=== PATIENT | male | born 1965 | race Caucasian/White ===

== ENCOUNTER 2019-07-08 12:39 | Inpatient (IN) | payer OTHER ==
[2019-07-08 13:40] LABS: ADD MAN DIFF? NO
[2019-07-08 13:43] LABS: BASOPHILS % 0.5 % (0.0-2.0); EOSINOPHILS % 0.5 % (0.0-7.0); HEMATOCRIT 29.6 % (42.0-52.0); HEMOGLOBIN 9.4 g/dl (14.0-18.0); LYMPHOCYTES # 0.9 10^3/ul (0.8-2.9); MEAN CORPUSCULAR HEMOGLOBIN 30.4 pg (29.0-33.0); MEAN CORPUSCULAR HGB CONC 31.8 g/dl (32.0-37.0); MEAN CORPUSCULAR VOLUME 95.8 fl (82.0-101.0); MEAN PLATELET VOLUME 8.8 fl (7.4-10.4); MONOCYTE # 0.5 10^3/ul (0.3-0.9); MONOCYTES % 6.4 % (0.0-11.0); NEUTROPHIL # 6.6 10^3/ul (1.6-7.5); NEUTROPHILS % 81.4 % (39.0-77.0); PLATELET COUNT 324 10^3/UL (140-415); RED BLOOD COUNT 3.09 10^6/ul (4.70-6.10); RED CELL DISTRIBUTION WIDTH 15.9 % (11.5-14.5)
[2019-07-08 13:43] LABS: WHITE BLOOD COUNT 8.1 10^3/ul (4.8-10.8)
[2019-07-08] MEDS: FUROSEMIDE 40 MG INJ IV (13:50)
[2019-07-08 14:00] LABS: ALANINE AMINOTRANSFERASE 36 IU/L (13-69); ALBUMIN 3.3 g/dl (3.3-4.9); ALBUMIN/GLOBULIN RATIO 1.13; ALKALINE PHOSPHATASE 74 IU/L (42-121); ANION GAP 6 (5-13); ASPARTATE AMINO TRANSFERASE 24 IU/L (15-46); BLOOD UREA NITROGEN 15 mg/dl (7-20); CALCIUM 8.5 mg/dl (8.4-10.2); CARBON DIOXIDE 32 mmol/L (21-31); CHLORIDE 99 mmol/L (97-110); CREATININE 0.78 mg/dl (0.61-1.24); Estimated GFR > 60 mL/min (>60); GLUCOSE 127 mg/dl (70-220); TOTAL PROTEIN 6.2 g/dl (6.1-8.1)
[2019-07-08 14:02] LABS: INR 1.65; PROTIME 19.6 Sec (11.9-14.9); PT RATIO 1.5
[2019-07-08 14:03] LABS: SODIUM 137 mmol/L (135-144)
[2019-07-08 14:04] LABS: PARTIAL THROMBOPLASTIN TIME 43.9 Sec (23.0-35.0)
[2019-07-08 14:12] LABS: B-TYPE NATRIURETIC PEPTIDE 12400 PG/ML (0-125); TROPONIN-I 0.068 ng/ml (0.000-0.120)
[2019-07-08 14:24] LABS: AADO2 Arterial 517.7 mmHg (7.0-24.0); Arterial Base Excess 5.2 mmol/L (-3.0-3); Arterial Blood Gas Oxygen Sat 99.2 mmHG (95.0-98.0); Arterial COHb 0.6 % (0.0-3.0); Arterial Fraction of Oxyhgb 98.2 % (93.0-99.0); Arterial HCO3 28.7 mmol/L (22.0-26.0); Arterial MetHb 0.4 % (0.0-1.5); Arterial pCO2 38.2 mmhg (35-45); Blood Gas IEPAP 15/5; Blood Gas PS 10; MODE MASK - BIPAP; Site Right Brachial
[2019-07-08] MEDS: NORepinephrine 8MG/250 ML (PMX 250 ML IV (14:33)
[2019-07-08 14:35] LABS: MAGNESIUM 1.3 mg/dl (1.7-2.5)
[2019-07-08] MEDS: POTASSIUM CHLORIDE 100 ML IVPB ×3 (14:40→22:17)
[2019-07-08] MEDS ORDERED: MAGNESIUM SULFATE 4 GM/100 ML 100 ML IV (16:00)
[2019-07-08] MEDS ORDERED: ENOXAPARIN 40 MG/0.4 ML SYG SC (16:00)
[2019-07-08] MEDS ORDERED: DOCUSATE SODIUM 100 MG CAP PO (16:00)
[2019-07-08] MEDS ORDERED: BISACODYL 10 MG SUPP PR (16:00)
[2019-07-08] MEDS: MAGNESIUM SULFATE 4 GM/100 ML 100 ML IVPB (16:30)
[2019-07-08] MEDS: MAGNESIUM SULFATE 1 GM/D5W 100 ML IVPB (16:30)
[2019-07-08] MEDS: ALBUTEROL 0.083% (NEB) 2.5 MG/3 ML AMP NEB ×2 (17:00→20:09)
[2019-07-08] MEDS: IPRATROPIUM (NEB) 0.5 MG/2.5 ML AMP NEB ×2 (17:00→20:10)
[2019-07-08] MEDS: NITROGLYCERIN (SL) 0.4 MG TAB SL ×3 (17:08→21:26)
[2019-07-08] MEDS: MAGNESIUM SULFATE 2 GM/50 ML 50 ML IVPB (17:08)
[2019-07-08] MEDS: morphine 2 MG INJ IV ×3 (17:08→22:12)
[2019-07-08] MEDS: MAG SULFATE 2GM IN 50 ML IVPB ×3 (17:30→22:18)
[2019-07-08] MEDS ORDERED: CLOPIDOGREL 75 MG TAB PO (19:30)
[2019-07-08] MEDS: CLOPIDOGREL 75 MG TAB PO (19:50)
[2019-07-08] MEDS ORDERED: APIXABAN 5 MG TABLET PO (21:00)
[2019-07-08] MEDS ORDERED: ATORVASTATIN 80 MG TAB PO (21:00)
[2019-07-08] MEDS: ATORVASTATIN 80 MG TAB PO (21:08)
[2019-07-08] MEDS: APIXABAN 5 MG TABLET PO (21:08)
[2019-07-08] MEDS: FAMOTIDINE 20 MG INJ IV (21:08)
[2019-07-08] MEDS: BUMETANIDE 25 MG in DEXTROSE 5% 150 ML IV (21:17)
[2019-07-08 21:22] LABS: CREATINE KINASE 65 IU/L (23-200)
[2019-07-08 21:32] LABS: CK INDEX 3.3; CK-MB 2.16 ng/ml (0.0-2.4); TROPONIN-I 0.074 ng/ml (0.000-0.120)
[2019-07-09] MEDS: ONDANSETRON 4 MG INJ IV (00:10)
[2019-07-09] MEDS: morphine 2 MG INJ IV ×4 (00:14→09:24)
[2019-07-09] MEDS: GUAIFENESIN 20 MG/ML 5ML CUP PO ×2 (00:50→13:40)
[2019-07-09] MEDS: ALBUTEROL 0.083% (NEB) 2.5 MG/3 ML AMP NEB ×3 (01:03→10:16)
[2019-07-09] MEDS: IPRATROPIUM (NEB) 0.5 MG/2.5 ML AMP NEB ×3 (01:03→10:16)
[2019-07-09 04:40] LABS: ADD MAN DIFF? NO
[2019-07-09 04:48] LABS: WHITE BLOOD COUNT 11.8 10^3/ul (4.8-10.8)
[2019-07-09 04:48] LABS: BASOPHILS % 0.3 % (0.0-2.0); HEMATOCRIT 29.3 % (42.0-52.0); HEMOGLOBIN 9.1 g/dl (14.0-18.0); LYMPHOCYTES # 1.2 10^3/ul (0.8-2.9); LYMPHOCYTES % 9.7 % (15.0-51.0); MEAN CORPUSCULAR HGB CONC 31.1 g/dl (32.0-37.0); MEAN CORPUSCULAR VOLUME 96.7 fl (82.0-101.0); MEAN PLATELET VOLUME 9.5 fl (7.4-10.4); MONOCYTE # 0.9 10^3/ul (0.3-0.9); MONOCYTES % 7.7 % (0.0-11.0); NEUTROPHIL # 9.7 10^3/ul (1.6-7.5); NEUTROPHILS % 81.8 % (39.0-77.0); PLATELET COUNT 400 10^3/UL (140-415); RED BLOOD COUNT 3.03 10^6/ul (4.70-6.10)
[2019-07-09 05:01] LABS: ANION GAP 8 (5-13); BLOOD UREA NITROGEN 13 mg/dl (7-20); CALCIUM 8.4 mg/dl (8.4-10.2); CARBON DIOXIDE 34 mmol/L (21-31); CHLORIDE 94 mmol/L (97-110); CREATININE 0.84 mg/dl (0.61-1.24); Estimated GFR > 60 mL/min (>60); GLUCOSE 128 mg/dl (70-220); POTASSIUM 3.4 mmol/L (3.5-5.1); SODIUM 136 mmol/L (135-144)
[2019-07-09 05:09] LABS: MAGNESIUM 6.2 mg/dl (1.7-2.5)
[2019-07-09 05:13] LABS: TROPONIN-I 0.089 ng/ml (0.000-0.120)
[2019-07-09 05:13] LABS: B-TYPE NATRIURETIC PEPTIDE 16600 PG/ML (0-125)
[2019-07-09] MEDS: NORepinephrine 8MG/250 ML (PMX 250 ML IV ×2 (05:46→11:33)
[2019-07-09 06:55] LABS: ANION GAP 8 (5-13); BLOOD UREA NITROGEN 15 mg/dl (7-20); CALCIUM 8.8 mg/dl (8.4-10.2); CARBON DIOXIDE 37 mmol/L (21-31); CHLORIDE 92 mmol/L (97-110); CREATININE 0.94 mg/dl (0.61-1.24); Estimated GFR > 60 mL/min (>60); GLUCOSE 151 mg/dl (70-220); POTASSIUM 3.9 mmol/L (3.5-5.1); SODIUM 137 mmol/L (135-144)
[2019-07-09] MEDS: LIDOCAINE 1% (MPF) 5 ML VIAL SC (07:37)
[2019-07-09 07:43] LABS: POTASSIUM 2.7 mmol/L (3.5-5.1)
[2019-07-09] MEDS: APIXABAN 5 MG TABLET PO ×2 (09:18→20:01)
[2019-07-09] MEDS: POTASSIUM CHLORIDE 50 ML IVPB (09:18)
[2019-07-09] MEDS: FAMOTIDINE 20 MG INJ IV ×2 (09:18→20:04)
[2019-07-09] MEDS: CLOPIDOGREL 75 MG TAB PO (09:18)
[2019-07-09] MEDS ORDERED: IPRATROPIUM (NEB) 0.5 MG/2.5 ML AMP NEB (10:30)
[2019-07-09] MEDS ORDERED: LEVALBUTEROL (NEB) 0.31 MG/3 ML AMP HHN (10:30)
[2019-07-09] MEDS: DOPamine-D5W 1.6 MG/ML 250 ML IV ×2 (11:34→23:43)
[2019-07-09] MEDS: BUMETANIDE 25 MG in DEXTROSE 5% 150 ML IV (18:30)
[2019-07-09] MEDS: ATORVASTATIN 80 MG TAB PO (20:01)
[2019-07-09] MEDS: morphine 4 MG/ML VIAL IV ×2 (20:08→23:39)
[2019-07-09] MEDS: ACETAMINOPHEN 650MG/20.3ML CUP PO (20:16)
[2019-07-09] MEDS ORDERED: VANCOMYCIN IV PER PHARMACY XX (22:00)
[2019-07-09 23:12] LABS: LACTIC ACID 1.4 mmol/L (0.5-2.0)
[2019-07-09] MEDS: VANCOMYCIN HCL 1.75 GM in SOD CHLORIDE 0.9% 500 ML IVPB (23:30)
[2019-07-09] MEDS: PIPER-TAZO 3.375 GM IV (PMX) 100 ML IVPB (23:30)
[2019-07-10 02:11] LABS: ADD UMIC YES; UR ASCORBIC ACID NEGATIVE (NEGATIVE); UR BILIRUBIN (Dip) NEGATIVE (NEGATIVE); UR BLOOD (Dip) 2+ mg/dL (NEGATIVE); UR CLARITY CLEAR (CLEAR); UR COLOR YELLOW (YELLOW); UR GLUCOSE (Dip) NEGATIVE (NEGATIVE); UR KETONES (Dip) NEGATIVE (NEGATIVE); UR LEUKOCYTE ESTERASE (Dip) NEGATIVE Leu/ul (NEGATIVE); UR NITRITE (Dip) NEGATIVE (NEGATIVE); UR RBC 9 /HPF (0-5); UR SPECIFIC GRAVITY (Dip) 1.006 (1.003-1.030); UR TOTAL PROTEIN (Dip) NEGATIVE (NEGATIVE); UR UROBILINOGEN (Dip) NEGATIVE (NEGATIVE); UR WBC 1 /HPF (0-5)
[2019-07-10] MEDS: morphine 4 MG/ML VIAL IV ×6 (02:11→23:38)
[2019-07-10] MEDS: LIDOCAINE 4% CR TOP (04:20)
[2019-07-10] MEDS: ZOLPIDEM 5 MG TAB PO (04:20)
[2019-07-10] MEDS: ACETAMINOPHEN 650MG/20.3ML CUP PO (04:35)
[2019-07-10 04:38] LABS: ADD MAN DIFF? NO
[2019-07-10 04:40] LABS: BASOPHILS % 0.3 % (0.0-2.0); EOSINOPHILS # 0.1 10^3/ul (0.0-0.5); EOSINOPHILS % 0.6 % (0.0-7.0); HEMATOCRIT 31.3 % (42.0-52.0); HEMOGLOBIN 9.7 g/dl (14.0-18.0); LYMPHOCYTES # 1.2 10^3/ul (0.8-2.9); LYMPHOCYTES % 10.3 % (15.0-51.0); MEAN CORPUSCULAR HEMOGLOBIN 29.8 pg (29.0-33.0); MEAN CORPUSCULAR VOLUME 96.3 fl (82.0-101.0); MEAN PLATELET VOLUME 8.8 fl (7.4-10.4); MONOCYTE # 0.9 10^3/ul (0.3-0.9); MONOCYTES % 7.5 % (0.0-11.0); NEUTROPHIL # 9.7 10^3/ul (1.6-7.5); NEUTROPHILS % 80.8 % (39.0-77.0); PLATELET COUNT 268 10^3/UL (140-415); RED BLOOD COUNT 3.25 10^6/ul (4.70-6.10); RED CELL DISTRIBUTION WIDTH 15.6 % (11.5-14.5)
[2019-07-10 05:04] LABS: MAGNESIUM 1.3 mg/dl (1.7-2.5)
[2019-07-10 05:05] LABS: ALANINE AMINOTRANSFERASE 28 IU/L (13-69); ALBUMIN 3.4 g/dl (3.3-4.9); ALKALINE PHOSPHATASE 60 IU/L (42-121); ASPARTATE AMINO TRANSFERASE 27 IU/L (15-46); BILIRUBIN,INDIRECT 1.8 mg/dl (0-1.1); BILIRUBIN,TOTAL 1.8 mg/dl (0.2-1.3); BLOOD UREA NITROGEN 15 mg/dl (7-20); CALCIUM 7.9 mg/dl (8.4-10.2); CHLORIDE 85 mmol/L (97-110); CREATININE 0.82 mg/dl (0.61-1.24); Estimated GFR > 60 mL/min (>60); GLUCOSE 140 mg/dl (70-220); SODIUM 135 mmol/L (135-144)
[2019-07-10 05:06] LABS: ANION GAP 10 (5-13)
[2019-07-10 05:07] LABS: POTASSIUM 2.4 mmol/L (3.5-5.1)
[2019-07-10] MEDS: POTASSIUM CHLORIDE 50 ML IVPB ×3 (05:11→11:05)
[2019-07-10 05:16] LABS: CARBON DIOXIDE 40 mmol/L (21-31)
[2019-07-10] MEDS: PIPER-TAZO 3.375 GM IV (PMX) 100 ML IVPB ×3 (05:26→20:43)
[2019-07-10] MEDS: MAGNESIUM SULFATE 2 GM/50 ML 50 ML IVPB (06:16)
[2019-07-10] MEDS: DOPamine-D5W 1.6 MG/ML 250 ML IV ×4 (06:28→23:19)
[2019-07-10] MEDS: CLOPIDOGREL 75 MG TAB PO (08:49)
[2019-07-10] MEDS: APIXABAN 5 MG TABLET PO ×2 (08:49→20:42)
[2019-07-10] MEDS: FAMOTIDINE 20 MG INJ IV (08:50)
[2019-07-10] MEDS: ALBUMIN HUMAN 25% 100 ML IV ×2 (11:06→17:20)
[2019-07-10 11:29] LABS: AADO2 Arterial 607.8 mmHg (7.0-24.0); Allen Test ACCEPTAB; Arterial Base Excess 10.8 mmol/L (-3.0-3); Arterial Blood Gas Oxygen Sat 87.5 mmHG (95.0-98.0); Arterial COHb 0.7 % (0.0-3.0); Arterial Fraction of Oxyhgb 86.5 % (93.0-99.0); Arterial HCO3 36.1 mmol/L (22.0-26.0); Arterial MetHb 0.4 % (0.0-1.5); Arterial pCO2 51.4 mmhg (35-45); Blood Gas IEPAP 15/5; Blood Gas PS 10; MODE MASK - BIPAP; Site Left Radial
[2019-07-10] MEDS: VANCOMYCIN 1 GM 250 ML IVPB (13:49)
[2019-07-10] MEDS: BUMETANIDE 25 MG in DEXTROSE 5% 150 ML IV (17:19)
[2019-07-10] MEDS: ATORVASTATIN 80 MG TAB PO (20:42)
[2019-07-10] MEDS: FAMOTIDINE 20 MG TAB PO (20:42)
[2019-07-11] MEDS: VANCOMYCIN 1 GM 250 ML IVPB ×2 (01:15→14:12)
[2019-07-11] MEDS: ALBUMIN HUMAN 25% 100 ML IV (01:16)
[2019-07-11 05:06] LABS: ADD MAN DIFF? NO
[2019-07-11] MEDS: PIPER-TAZO 3.375 GM IV (PMX) 100 ML IVPB ×3 (05:12→20:23)
[2019-07-11 05:13] LABS: BASOPHILS % 0.2 % (0.0-2.0); EOSINOPHILS # 0.1 10^3/ul (0.0-0.5); HEMATOCRIT 27.8 % (42.0-52.0); HEMOGLOBIN 8.7 g/dl (14.0-18.0); LYMPHOCYTES # 1.2 10^3/ul (0.8-2.9); LYMPHOCYTES % 10.4 % (15.0-51.0); MEAN CORPUSCULAR HGB CONC 31.3 g/dl (32.0-37.0); MEAN CORPUSCULAR VOLUME 95.9 fl (82.0-101.0); MEAN PLATELET VOLUME 9.8 fl (7.4-10.4); MONOCYTE # 0.6 10^3/ul (0.3-0.9); MONOCYTES % 5.6 % (0.0-11.0); NEUTROPHIL # 9.4 10^3/ul (1.6-7.5); NEUTROPHILS % 82.4 % (39.0-77.0); PLATELET COUNT 236 10^3/UL (140-415); RED CELL DISTRIBUTION WIDTH 15.4 % (11.5-14.5)
[2019-07-11 05:13] LABS: WHITE BLOOD COUNT 11.4 10^3/ul (4.8-10.8)
[2019-07-11] MEDS: DOPamine-D5W 1.6 MG/ML 250 ML IV ×4 (05:20→23:23)
[2019-07-11 05:42] LABS: ALANINE AMINOTRANSFERASE 24 IU/L (13-69); ALBUMIN 3.8 g/dl (3.3-4.9); ALBUMIN/GLOBULIN RATIO 1.35; ALKALINE PHOSPHATASE 56 IU/L (42-121); ANION GAP 10 (5-13); ASPARTATE AMINO TRANSFERASE 26 IU/L (15-46); BILIRUBIN,INDIRECT 1.4 mg/dl (0-1.1); BILIRUBIN,TOTAL 1.4 mg/dl (0.2-1.3); BLOOD UREA NITROGEN 19 mg/dl (7-20); CALCIUM 8.1 mg/dl (8.4-10.2); CARBON DIOXIDE 39 mmol/L (21-31); CHLORIDE 84 mmol/L (97-110); CREATININE 0.91 mg/dl (0.61-1.24); Estimated GFR > 60 mL/min (>60); GLUCOSE 116 mg/dl (70-220); SODIUM 133 mmol/L (135-144); TOTAL PROTEIN 6.6 g/dl (6.1-8.1)
[2019-07-11 05:44] LABS: MAGNESIUM 1.5 mg/dl (1.7-2.5); POTASSIUM 2.4 mmol/L (3.5-5.1)
[2019-07-11 05:44] LABS: PHOSPHORUS 3.2 mg/dl (2.5-4.9)
[2019-07-11] MEDS: POTASSIUM CHLORIDE 50 ML IVPB ×5 (05:49→22:07)
[2019-07-11] MEDS: morphine 4 MG/ML VIAL IV (06:54)
[2019-07-11] MEDS: APIXABAN 5 MG TABLET PO ×2 (08:06→20:23)
[2019-07-11] MEDS: FAMOTIDINE 20 MG TAB PO ×2 (08:06→20:23)
[2019-07-11] MEDS: CLOPIDOGREL 75 MG TAB PO (08:06)
[2019-07-11] MEDS: MAGNESIUM SULFATE 2 GM/50 ML 50 ML IVPB (08:06)
[2019-07-11 09:58] LABS: AADO2 Arterial 615.7 mmHg (7.0-24.0); Allen Test ACCEPTAB; Arterial Base Excess 7.7 mmol/L (-3.0-3); Arterial Blood Gas Oxygen Sat 87.6 mmHG (95.0-98.0); Arterial COHb 0.3 % (0.0-3.0); Arterial HCO3 32.1 mmol/L (22.0-26.0); Arterial MetHb 0.4 % (0.0-1.5); Arterial pCO2 44.3 mmhg (35-45); Blood Gas IEPAP 15/8; Blood Gas PS 7; MODE MASK - BIPAP; Site Left Radial
[2019-07-11] MEDS: METHYLPREDNISOLONE 40 MG INJ IV ×3 (10:27→20:23)
[2019-07-11] MEDS: ALBUMIN HUMAN 25% 50 ML IV ×2 (10:28→17:00)
[2019-07-11] MEDS: NORepinephrine 8MG/250 ML (PMX 250 ML IV (10:55)
[2019-07-11] MEDS: LIDOCAINE 5% PATCH TD (11:00)
[2019-07-11] MEDS: ALPRAZOLAM 0.5 MG TAB PO ×2 (12:21→20:23)
[2019-07-11 12:58] LABS: ANION GAP 14 (5-13); BLOOD UREA NITROGEN 23 mg/dl (7-20); CALCIUM 8.2 mg/dl (8.4-10.2); CARBON DIOXIDE 33 mmol/L (21-31); CHLORIDE 83 mmol/L (97-110); CREATININE 1.08 mg/dl (0.61-1.24); Estimated GFR > 60 mL/min (>60); GLUCOSE 176 mg/dl (70-220); POTASSIUM 3.1 mmol/L (3.5-5.1); SODIUM 130 mmol/L (135-144)
[2019-07-11 13:05] LABS: B-TYPE NATRIURETIC PEPTIDE 28900 PG/ML (0-125)
[2019-07-11 13:40] LABS: VANCOMYCIN,TROUGH 14.1 ug/ml (10.0-20.0)
[2019-07-11] MEDS: BUMETANIDE 25 MG in DEXTROSE 5% 150 ML IV (16:59)
[2019-07-11] MEDS: ATORVASTATIN 80 MG TAB PO (20:23)
[2019-07-11] MEDS: ZOLPIDEM 5 MG TAB PO (23:07)
[2019-07-11 23:24] LABS: AADO2 Arterial 462.7 mmHg (7.0-24.0); Arterial Base Excess -5.9 mmol/L (-3.0-3); Arterial Blood Gas Oxygen Sat 92.4 mmHG (95.0-98.0); Arterial COHb 0.3 % (0.0-3.0); Arterial Fraction of Oxyhgb 91.8 % (93.0-99.0); Arterial HCO3 18.8 mmol/L (22.0-26.0); Arterial MetHb 0.4 % (0.0-1.5); Blood Gas IEPAP 15/8; Blood Gas PS 7; MODE MASK - BIPAP; Site LB
[2019-07-12] MEDS: METOLAZONE 10 MG TAB PO (00:53)
[2019-07-12] MEDS: METAXALONE 800 MG TAB PO (00:53)
[2019-07-12] MEDS: ALBUMIN HUMAN 25% 50 ML IV ×2 (00:59→12:23)
[2019-07-12] MEDS: VANCOMYCIN 1 GM 250 ML IVPB (00:59)
[2019-07-12] MEDS: POTASSIUM CHLORIDE 50 ML IVPB (01:05)
[2019-07-12 01:58] LABS: AADO2 Arterial 637.7 mmHg (7.0-24.0); Allen Test ACCEPTAB; Arterial Base Excess -5.7 mmol/L (-3.0-3); Arterial COHb 0.3 % (0.0-3.0); Arterial Fraction of Oxyhgb 20.6 % (93.0-99.0); Arterial MetHb 1.8 % (0.0-1.5); Arterial pCO2 54.2 mmhg (35-45); Blood Gas IEPAP 15/8; MODE MASK - BIPAP; Site Right Radial
[2019-07-12] MEDS: MIDAZOLAM (DRIP) 50 mg/50 mL 50 ML IV ×2 (02:59→12:20)
[2019-07-12] MEDS: VASOPRESSIN 60 UNIT in DEXTROSE 5% 57 ML IV ×3 (03:00→18:00)
[2019-07-12 03:36] LABS: AADO2 Arterial 530.5 mmHg (7.0-24.0); Arterial Base Excess -10.4 mmol/L (-3.0-3); Arterial Blood Gas Oxygen Sat 97.4 mmHG (95.0-98.0); Arterial COHb 0.1 % (0.0-3.0); Arterial Fraction of Oxyhgb 96.8 % (93.0-99.0); Arterial HCO3 17.9 mmol/L (22.0-26.0); Arterial MetHb 0.5 % (0.0-1.5); Arterial pCO2 51.1 mmhg (35-45); MODE VENT - AC; Site LB
[2019-07-12] MEDS: FENTAnyl (DRIP) 1000 mcg/100mL 100 ML IV ×2 (04:19→14:47)
[2019-07-12] MEDS: DOPamine-D5W 1.6 MG/ML 250 ML IV ×3 (04:33→12:33)
[2019-07-12] MEDS: METHYLPREDNISOLONE 40 MG INJ IV ×3 (04:34→22:36)
[2019-07-12] MEDS: PIPER-TAZO 3.375 GM IV (PMX) 100 ML IVPB ×3 (04:34→22:37)
[2019-07-12 05:28] LABS: ADD MAN DIFF? NO
[2019-07-12 05:34] LABS: ABNORMAL IP MESSAGE 1; BASOPHILS % 0.1 % (0.0-2.0); HEMATOCRIT 29.8 % (42.0-52.0); HEMOGLOBIN 8.9 g/dl (14.0-18.0); LYMPHOCYTES # 0.3 10^3/ul (0.8-2.9); LYMPHOCYTES % 1.9 % (15.0-51.0); MEAN CORPUSCULAR HEMOGLOBIN 30.1 pg (29.0-33.0); MEAN CORPUSCULAR HGB CONC 29.9 g/dl (32.0-37.0); MEAN CORPUSCULAR VOLUME 100.7 fl (82.0-101.0); MEAN PLATELET VOLUME 10.9 fl (7.4-10.4); MONOCYTE # 0.9 10^3/ul (0.3-0.9); MONOCYTES % 5.9 % (0.0-11.0); NEUTROPHIL # 13.3 10^3/ul (1.6-7.5); NEUTROPHILS % 91.3 % (39.0-77.0); PLATELET COUNT 253 10^3/UL (140-415); POSITIVE DIFF @See below; RED BLOOD COUNT 2.96 10^6/ul (4.70-6.10); RED CELL DISTRIBUTION WIDTH 15.6 % (11.5-14.5)
[2019-07-12 05:34] LABS: WHITE BLOOD COUNT 14.6 10^3/ul (4.8-10.8)
[2019-07-12 05:57] LABS: ANION GAP 27 (5-13); BLOOD UREA NITROGEN 33 mg/dl (7-20); CARBON DIOXIDE 21 mmol/L (21-31); CHLORIDE 85 mmol/L (97-110); CREATININE 1.38 mg/dl (0.61-1.24); Estimated GFR 53 mL/min (>60); GLUCOSE 130 mg/dl (70-220); MAGNESIUM 2.3 mg/dl (1.7-2.5); PHOSPHORUS 8.2 mg/dl (2.5-4.9); POTASSIUM 4.4 mmol/L (3.5-5.1); SODIUM 133 mmol/L (135-144)
[2019-07-12 07:11] LABS: ALBUMIN 4.2 g/dl (3.3-4.9); ALKALINE PHOSPHATASE 89 IU/L (42-121); BILIRUBIN,TOTAL 3.2 mg/dl (0.2-1.3); TOTAL PROTEIN 6.9 g/dl (6.1-8.1)
[2019-07-12 07:20] LABS: AADO2 Arterial 525.8 mmHg (7.0-24.0); Allen Test ACCEPTAB; Arterial Base Excess -6.4 mmol/L (-3.0-3); Arterial Blood Gas Oxygen Sat 90.6 mmHG (95.0-98.0); Arterial COHb 0.3 % (0.0-3.0); Arterial MetHb 0.4 % (0.0-1.5); Arterial pCO2 43.3 mmhg (35-45); MODE VENT - AC; Site Left Radial
[2019-07-12 07:22] LABS: ALANINE AMINOTRANSFERASE 2375 IU/L (13-69)
[2019-07-12] MEDS ORDERED: AMIODARONE 200 MG TAB GTB (09:00)
[2019-07-12] MEDS: CLOPIDOGREL 75 MG TAB PO (10:26)
[2019-07-12] MEDS: APIXABAN 5 MG TABLET PO ×2 (10:26→21:00)
[2019-07-12] MEDS: LIDOCAINE 5% PATCH TD (10:26)
[2019-07-12] MEDS: FAMOTIDINE 20 MG TAB PO ×2 (10:26→21:00)
[2019-07-12] MEDS: NA BICARBONATE 8.4% 50 ML SYG IV (10:27)
[2019-07-12 10:56] LABS: LACTIC ACID 8.8 mmol/L (0.5-2.0)
[2019-07-12] MEDS: NORepinephrine 8MG/250 ML (PMX 250 ML IV (12:32)
[2019-07-12 14:01] LABS: ADD UMIC YES; UR AMORPHOUS CRYSTAL MODERATE /HPF (NONE SEEN); UR ASCORBIC ACID NEGATIVE (NEGATIVE); UR BACTERIA FEW /HPF (NONE SEEN); UR BILIRUBIN (Dip) NEGATIVE (NEGATIVE); UR BLOOD (Dip) 3+ mg/dL (NEGATIVE); UR BUDDING YEAST FEW /HPF (NONE SEEN); UR CLARITY CLOUDY (CLEAR); UR COLOR AMBER (YELLOW); UR GLUCOSE (Dip) NEGATIVE (NEGATIVE); UR HYALINE CAST FEW /HPF (NONE SEEN); UR KETONES (Dip) NEGATIVE (NEGATIVE); UR LEUKOCYTE ESTERASE (Dip) NEGATIVE Leu/ul (NEGATIVE); UR MUCUS MANY /HPF (NONE SEEN); UR NITRITE (Dip) NEGATIVE (NEGATIVE); UR RBC 74 /HPF (0-5); UR SPECIFIC GRAVITY (Dip) 1.017 (1.003-1.030); UR SQUAMOUS EPITHELIAL CELL FEW /HPF (FEW); UR TOTAL PROTEIN (Dip) 2+ mg/dl (NEGATIVE); UR UROBILINOGEN (Dip) NEGATIVE (NEGATIVE); UR WBC 4 /HPF (0-5)
[2019-07-12 14:04] LABS: AADO2 Arterial 612.7 mmHg (7.0-24.0); Allen Test ACCEPTAB; Arterial Base Excess 0.4 mmol/L (-3.0-3); Arterial Blood Gas Oxygen Sat 79.1 mmHG (95.0-98.0); Arterial COHb 0.2 % (0.0-3.0); Arterial Fraction of Oxyhgb 78.6 % (93.0-99.0); Arterial HCO3 26.4 mmol/L (22.0-26.0); Arterial MetHb 0.4 % (0.0-1.5); Arterial pCO2 49.5 mmhg (35-45); MODE VENT - AC; Site Left Radial
[2019-07-12] MEDS: FUROSEMIDE 40 MG INJ IV (14:30)
[2019-07-12] MEDS ORDERED: SODIUM CHLORIDE 0.9% 1L BAG IV (15:00)
[2019-07-12] MEDS ORDERED: ALBUMIN HUMAN 25% 100 ML IV (15:00)
[2019-07-12] MEDS ORDERED: ALBUMIN HUMAN 25% 50 ML IV (17:30)
[2019-07-12] MEDS: HEPARIN 1000 UNITS/ML 10 ML INJ CATHETER (18:27)
[2019-07-12 18:53] LABS: HEPATITIS B SURFACE ANTIGEN NEGATIVE (NEGATIVE)
[2019-07-12 18:56] LABS: HEPATITIS B SURFACE ANTIBODY POSITIVE (NEGATIVE)
[2019-07-12] MEDS: NORepinephrine 32 MG in DEXTROSE 5% 218 ML IV (19:00)
[2019-07-12] MEDS: ALBUMIN HUMAN 25% 100 ML IV (20:42)
[2019-07-12] MEDS: ATORVASTATIN 80 MG TAB PO (21:00)
[2019-07-13 01:17] LABS: AADO2 Arterial 609.6 mmHg (7.0-24.0); Allen Test ACCEPTAB; Arterial Base Excess -0.5 mmol/L (-3.0-3); Arterial Blood Gas Oxygen Sat 86.1 mmHG (95.0-98.0); Arterial COHb 0.2 % (0.0-3.0); Arterial Fraction of Oxyhgb 85.3 % (93.0-99.0); Arterial HCO3 24.8 mmol/L (22.0-26.0); Arterial MetHb 0.7 % (0.0-1.5); Arterial pCO2 43.7 mmhg (35-45); MODE VENT - AC; Site Left Radial
[2019-07-13 01:32] LABS: ADD MAN DIFF? NO
[2019-07-13 01:37] LABS: WHITE BLOOD COUNT 20.5 10^3/ul (4.8-10.8)
[2019-07-13 01:37] LABS: ABNORMAL IP MESSAGE 1; BASOPHILS % 0.1 % (0.0-2.0); HEMATOCRIT 22.5 % (42.0-52.0); LYMPHOCYTES # 0.3 10^3/ul (0.8-2.9); LYMPHOCYTES % 1.5 % (15.0-51.0); MEAN CORPUSCULAR HEMOGLOBIN 30.2 pg (29.0-33.0); MEAN CORPUSCULAR HGB CONC 31.1 g/dl (32.0-37.0); MEAN PLATELET VOLUME 10.7 fl (7.4-10.4); MONOCYTE # 0.7 10^3/ul (0.3-0.9); MONOCYTES % 3.6 % (0.0-11.0); NEUTROPHIL # 19.2 10^3/ul (1.6-7.5); NEUTROPHILS % 93.4 % (39.0-77.0); NUCLEATED RED BLOOD CELLS% 0.1 /100WBC (0.0-0.0); PLATELET COUNT 187 10^3/UL (140-415); POSITIVE DIFF @See below; RED BLOOD COUNT 2.32 10^6/ul (4.70-6.10); RED CELL DISTRIBUTION WIDTH 15.4 % (11.5-14.5)
[2019-07-13 01:55] LABS: ANION GAP 17 (5-13); BLOOD UREA NITROGEN 38 mg/dl (7-20); CALCIUM 7.4 mg/dl (8.4-10.2); CARBON DIOXIDE 29 mmol/L (21-31); CHLORIDE 91 mmol/L (97-110); CREATININE 2.09 mg/dl (0.61-1.24); Estimated GFR 33 mL/min (>60); GLUCOSE 181 mg/dl (70-220); MAGNESIUM 2.2 mg/dl (1.7-2.5); PHOSPHORUS 5.8 mg/dl (2.5-4.9); POTASSIUM 4.2 mmol/L (3.5-5.1); SODIUM 137 mmol/L (135-144)
[2019-07-13] MEDS: CALCIUM GLUCONATE 10% 1 GM in DEXTROSE 5% 100 ML IVPB (03:21)
[2019-07-13] MEDS: ALBUMIN HUMAN 25% 100 ML IV ×5 (03:30→21:07)
[2019-07-13 04:30] LABS: PARTIAL THROMBOPLASTIN TIME 41.2 Sec (23.0-35.0)
[2019-07-13] MEDS: PIPER-TAZO 3.375 GM IV (PMX) 100 ML IVPB (05:35)
[2019-07-13] MEDS: METHYLPREDNISOLONE 40 MG INJ IV (05:35)
[2019-07-13] MEDS: SOD CHLORIDE 0.9% 250 ML IV* ×2 (05:38→21:02)
[2019-07-13 05:52] LABS: PROTIME > 100.0 Sec (11.9-14.9); PT RATIO 7.8
[2019-07-13 05:55] LABS: INR > 10.00
[2019-07-13] MEDS: MIDAZOLAM (DRIP) 50 mg/50 mL 50 ML IV ×3 (06:13→22:05)
[2019-07-13] MEDS: LIDOCAINE 5% PATCH TD (08:21)
[2019-07-13] MEDS: CLOPIDOGREL 75 MG TAB PO (08:21)
[2019-07-13] MEDS: FAMOTIDINE 20 MG TAB PO (08:21)
[2019-07-13 08:55] LABS: AADO2 Arterial 598.9 mmHg (7.0-24.0); Allen Test ACCEPTAB; Arterial Base Excess -1.3 mmol/L (-3.0-3); Arterial Blood Gas Oxygen Sat 87.6 mmHG (95.0-98.0); Arterial COHb 0 % (0.0-3.0); Arterial Fraction of Oxyhgb 87.1 % (93.0-99.0); Arterial HCO3 25.2 mmol/L (22.0-26.0); Arterial MetHb 0.6 % (0.0-1.5); Arterial pCO2 51.1 mmhg (35-45); MODE VENT - AC; Site Right Radial
[2019-07-13] MEDS: VASOPRESSIN 60 UNIT in DEXTROSE 5% 57 ML IV (08:56)
[2019-07-13] MEDS: NORepinephrine 32 MG in DEXTROSE 5% 218 ML IV (08:57)
[2019-07-13] MEDS: PHYTONADIONE 10 MG in DEXTROSE 5% 50 ML IVPB (08:58)
[2019-07-13 09:31] LABS: PLATELET COUNT 135 10^3/UL (140-415)
[2019-07-13 09:53] LABS: THROMBIN TIME 15.4 SEC (13.8-19.1)
[2019-07-13] MEDS ORDERED: FUROSEMIDE 40 MG INJ (09:54)
[2019-07-13] MEDS: FUROSEMIDE 40 MG INJ IV (10:04)
[2019-07-13] MEDS: PANTOPRAZOLE 40 MG INJ IV ×2 (10:04→18:33)
[2019-07-13 10:11] LABS: VANCOMYCIN,RANDOM 18.7 ug/ml
[2019-07-13 10:45] LABS: PROTIME > 100.0 Sec (11.9-14.9); PT RATIO 7.8
[2019-07-13 10:49] LABS: INR > 10.00
[2019-07-13 10:52] LABS: D-DIMER > 10000.00 ng/ml (<460)
[2019-07-13] MEDS: MEROPENEM 1 GM/50ML(PMX) 50 ML IVPB (12:57)
[2019-07-13] MEDS ORDERED: EPINEPHrine 4 MG in DEXTROSE 5% 246 ML IV (13:00)
[2019-07-13 13:09] LABS: IMMEDIATE SPIN CROSSMATCH 1
[2019-07-13 13:45] LABS: AADO2 Venous 633.1 mmHg; MODE VENT - AC; MetHgb Venous 0.9 %; Sample Type Blood venous; Site OTHER; Venous COHb 0.3 %; Venous Fraction OxyHgb 47.6 %; Venous Oxygen Sat 48.2 mmHG (55.0-75.0)
[2019-07-13] MEDS: EPINEPHrine 4 MG in DEXTROSE 5% 246 ML IV ×2 (14:11→20:14)
[2019-07-13] MEDS: HYDROCORTISONE 100 MG INJ IV ×2 (14:12→18:34)
[2019-07-13] MEDS: DOBUTamine/D5W 1 MG/ML DRIP 250 ML IV ×3 (15:46→22:59)
[2019-07-13 20:35] LABS: WHITE BLOOD COUNT 7.3 10^3/ul (4.8-10.8)
[2019-07-13 20:35] LABS: ABNORMAL IP MESSAGE 1; HEMATOCRIT 19.2 % (42.0-52.0); MEAN CORPUSCULAR HEMOGLOBIN 30.3 pg (29.0-33.0); MEAN CORPUSCULAR HGB CONC 30.7 g/dl (32.0-37.0); MEAN CORPUSCULAR VOLUME 98.5 fl (82.0-101.0); MEAN PLATELET VOLUME 11.5 fl (7.4-10.4); NUCLEATED RED BLOOD CELLS% 0.5 /100WBC (0.0-0.0); PLATELET COUNT 83 10^3/UL (140-415); POSITIVE DIFF @See below; RED BLOOD COUNT 1.95 10^6/ul (4.70-6.10); RED CELL DISTRIBUTION WIDTH 15.6 % (11.5-14.5)
[2019-07-13 20:54] LABS: ADD MAN DIFF? YES; HEMOGLOBIN 5.9 g/dl (14.0-18.0)
[2019-07-13 20:55] LABS: PATH REVIEW? YES
[2019-07-13 20:56] LABS: ALBUMIN 3.7 g/dl (3.3-4.9); ALBUMIN/GLOBULIN RATIO 1.85; ALKALINE PHOSPHATASE 129 IU/L (42-121); ANION GAP 17 (5-13); BILIRUBIN,INDIRECT 1.7 mg/dl (0-1.1); BILIRUBIN,TOTAL 4.7 mg/dl (0.2-1.3); BLOOD UREA NITROGEN 59 mg/dl (7-20); CALCIUM 6.2 mg/dl (8.4-10.2); CARBON DIOXIDE 27 mmol/L (21-31); CHLORIDE 88 mmol/L (97-110); CREATININE 3.38 mg/dl (0.61-1.24); Estimated GFR 19 mL/min (>60); GLUCOSE 370 mg/dl (70-220); MAGNESIUM 2.4 mg/dl (1.7-2.5); POTASSIUM 3.8 mmol/L (3.5-5.1); SODIUM 132 mmol/L (135-144); TOTAL PROTEIN 5.7 g/dl (6.1-8.1)
[2019-07-13 21:10] LABS: ALANINE AMINOTRANSFERASE 2957 IU/L (13-69)
[2019-07-13] MEDS: CALCIUM GLUCONATE 10% 2 GM in DEXTROSE 5% 100 ML IVPB (21:46)
[2019-07-13 21:49] LABS: ANISOCYTOSIS 1+ (0-0); BURR CELLS 1+ (0-0); ERYTHROBLAST% (NRBC) (M) 4 % (0-0); GIANT THROMBO% (M) 1 % (0-0); LYMPHOCYTES #M 0.2 10^3/ul (0.8-2.9); LYMPHOCYTES % (M) 3 % (15-51); MONOCYTE #M 0.2 10^3/ul (0.3-0.9); MONOCYTES % (M) 3 % (0-11); POIKILOCYTOSIS 1+ (0-0); POLYCHROMASIA 1+ (0-0); SEGMENTED NEUTROPHILS (M) % 94 % (39-77); SMUDGE%M 98 % (0-0)
[2019-07-13] MEDS: DOPamine-D5W 1.6 MG/ML 250 ML IV (21:55)
[2019-07-13] MEDS ORDERED: GLUCOSE GEL 15 GRAM TUBE PO ×2 (22:30)
[2019-07-13] MEDS ORDERED: INSULIN HUMAN REGULAR 100 UNIT in SOD CHLORIDE 0.9% 99 ML IV (22:30)
[2019-07-13] MEDS ORDERED: GLUCAGON 1 MG INJ IM (22:30)
[2019-07-13] MEDS ORDERED: GLUCOSE GEL 15 GRAM TUBE BUCCAL (22:30)
[2019-07-13] MEDS ORDERED: DEXTROSE 50% 50 ML SYRINGE IV ×6 (22:30)
[2019-07-13] MEDS: INSULIN HUMAN REGULAR 100 UNIT in SOD CHLORIDE 0.9% 99 ML IV (23:49)
[2019-07-13] MEDS: ACCU-CHEK XX (23:49)
[2019-07-14] MEDS: HYDROCORTISONE 100 MG INJ IV ×5 (00:15→23:33)
[2019-07-14] MEDS: ACCU-CHEK XX ×12 (01:00→23:00)
[2019-07-14] MEDS: DOBUTamine/D5W 1 MG/ML DRIP 250 ML IV ×2 (02:00→04:38)
[2019-07-14] MEDS: EPINEPHrine 4 MG in DEXTROSE 5% 246 ML IV ×4 (02:28→22:13)
[2019-07-14] MEDS: INSULIN HUMAN REGULAR 100 UNIT in SOD CHLORIDE 0.9% 99 ML IV ×2 (04:12→11:13)
[2019-07-14] MEDS: VASOPRESSIN 60 UNIT in DEXTROSE 5% 57 ML IV ×2 (04:41→15:00)
[2019-07-14] MEDS: NORepinephrine 32 MG in DEXTROSE 5% 218 ML IV ×2 (04:45→21:44)
[2019-07-14 05:06] LABS: ADD MAN DIFF? NO
[2019-07-14] MEDS: ALBUMIN HUMAN 25% 100 ML IV ×2 (05:09→11:14)
[2019-07-14] MEDS: PANTOPRAZOLE 40 MG INJ IV ×2 (05:09→17:47)
[2019-07-14 05:29] LABS: AADO2 Arterial 468.9 mmHg (7.0-24.0); ABNORMAL IP MESSAGE 1; Arterial Base Excess -4.5 mmol/L (-3.0-3); Arterial Blood Gas Oxygen Sat 97.4 mmHG (95.0-98.0); Arterial COHb 0.3 % (0.0-3.0); Arterial Fraction of Oxyhgb 96.6 % (93.0-99.0); Arterial HCO3 22.8 mmol/L (22.0-26.0); Arterial MetHb 0.5 % (0.0-1.5); Arterial pCO2 53.4 mmhg (35-45); HEMATOCRIT 22.4 % (42.0-52.0); HEMOGLOBIN 7.2 g/dl (14.0-18.0); LYMPHOCYTES # 0.5 10^3/ul (0.8-2.9); LYMPHOCYTES % 4.7 % (15.0-51.0); MEAN CORPUSCULAR HEMOGLOBIN 30.4 pg (29.0-33.0); MEAN CORPUSCULAR HGB CONC 32.1 g/dl (32.0-37.0); MEAN CORPUSCULAR VOLUME 94.5 fl (82.0-101.0); MEAN PLATELET VOLUME 11.8 fl (7.4-10.4); MODE VENT AC/VC+; MONOCYTE # 0.4 10^3/ul (0.3-0.9); MONOCYTES % 3.6 % (0.0-11.0); NEUTROPHIL # 9.1 10^3/ul (1.6-7.5); NEUTROPHILS % 91.2 % (39.0-77.0); NUCLEATED RED BLOOD CELLS # 0.1 10^3/ul (0.0-0.0); NUCLEATED RED BLOOD CELLS% 1.1 /100WBC (0.0-0.0); PLATELET COUNT 84 10^3/UL (140-415); POSITIVE DIFF @See below; RED BLOOD COUNT 2.37 10^6/ul (4.70-6.10); RED CELL DISTRIBUTION WIDTH 15.4 % (11.5-14.5); Site Right Brachial
[2019-07-14 05:49] LABS: PLATELET COUNT 84 10^3/UL (140-415)
[2019-07-14 05:51] LABS: ANION GAP 18 (5-13); Estimated GFR 17 mL/min (>60)
[2019-07-14 05:58] LABS: BLOOD UREA NITROGEN 68 mg/dl (7-20); CALCIUM 6.5 mg/dl (8.4-10.2); CARBON DIOXIDE 29 mmol/L (21-31); CHLORIDE 86 mmol/L (97-110); CREATININE 3.65 mg/dl (0.61-1.24); GLUCOSE 298 mg/dl (70-220); SODIUM 133 mmol/L (135-144)
[2019-07-14 06:08] LABS: LACTIC ACID 3.9 mmol/L (0.5-2.0)
[2019-07-14 06:48] LABS: PROTIME 60.4 Sec (11.9-14.9); PT RATIO 4.7
[2019-07-14 06:49] LABS: PARTIAL THROMBOPLASTIN TIME 37.6 Sec (23.0-35.0)
[2019-07-14 06:51] LABS: THROMBIN TIME 16.4 SEC (13.8-19.1)
[2019-07-14] MEDS: MIDAZOLAM (DRIP) 50 mg/50 mL 50 ML IV ×3 (07:04→23:57)
[2019-07-14 07:28] LABS: INR 7.04
[2019-07-14 07:29] LABS: D-DIMER > 10000.00 ng/ml (<460)
[2019-07-14] MEDS ORDERED: DOBUTamine/D5W 1 MG/ML DRIP 250 ML IV (07:30)
[2019-07-14] MEDS: LIDOCAINE 5% PATCH TD (08:59)
[2019-07-14] MEDS: VANCOMYCIN 1 GM 250 ML IVPB (09:02)
[2019-07-14] MEDS ORDERED: POTASSIUM CHLORIDE 0 ML IVPB (09:15)
[2019-07-14] MEDS: POTASSIUM CHLORIDE 50 ML IVPB ×2 (09:49→14:13)
[2019-07-14] MEDS: NA BICARBONATE 8.4% 50 ML SYG IV (10:32)
[2019-07-14 10:53] LABS: AADO2 Arterial 432.5 mmHg (7.0-24.0); Allen Test ACCEPTAB; Arterial Base Excess -1.8 mmol/L (-3.0-3); Arterial Blood Gas Oxygen Sat 81.7 mmHG (95.0-98.0); Arterial COHb 0.3 % (0.0-3.0); Arterial HCO3 24.7 mmol/L (22.0-26.0); Arterial MetHb 0.6 % (0.0-1.5); Arterial pCO2 50.6 mmhg (35-45); MODE VENT - AC; Site Right Radial
[2019-07-14] MEDS: CALCIUM GLUCONATE 10% 2 GM in DEXTROSE 5% 100 ML IVPB (11:15)
[2019-07-14 12:03] LABS: ADD MAN DIFF? NO
[2019-07-14 12:15] LABS: ABNORMAL IP MESSAGE 1; BASOPHILS % 0.1 % (0.0-2.0); EOSINOPHILS % 0.1 % (0.0-7.0); HEMATOCRIT 21.3 % (42.0-52.0); HEMOGLOBIN 7.2 g/dl (14.0-18.0); LYMPHOCYTES # 0.7 10^3/ul (0.8-2.9); LYMPHOCYTES % 6.3 % (15.0-51.0); MEAN CORPUSCULAR HEMOGLOBIN 31.3 pg (29.0-33.0); MEAN CORPUSCULAR HGB CONC 33.8 g/dl (32.0-37.0); MEAN CORPUSCULAR VOLUME 92.6 fl (82.0-101.0); MEAN PLATELET VOLUME 11.6 fl (7.4-10.4); MONOCYTE # 0.6 10^3/ul (0.3-0.9); MONOCYTES % 5.4 % (0.0-11.0); NEUTROPHIL # 9.3 10^3/ul (1.6-7.5); NEUTROPHILS % 87.4 % (39.0-77.0); NUCLEATED RED BLOOD CELLS # 0.1 10^3/ul (0.0-0.0); NUCLEATED RED BLOOD CELLS% 0.8 /100WBC (0.0-0.0); PLATELET COUNT 70 10^3/UL (140-415); POSITIVE DIFF @See below; RED CELL DISTRIBUTION WIDTH 15.5 % (11.5-14.5)
[2019-07-14 12:15] LABS: WHITE BLOOD COUNT 10.7 10^3/ul (4.8-10.8)
[2019-07-14 12:23] LABS: LACTIC ACID 1.9 mmol/L (0.5-2.0)
[2019-07-14 12:25] LABS: ALKALINE PHOSPHATASE 121 IU/L (42-121); ANION GAP 16 (5-13); BILIRUBIN,INDIRECT 1.6 mg/dl (0-1.1); BILIRUBIN,TOTAL 4.5 mg/dl (0.2-1.3); BLOOD UREA NITROGEN 72 mg/dl (7-20); CALCIUM 6.5 mg/dl (8.4-10.2); CARBON DIOXIDE 28 mmol/L (21-31); CHLORIDE 89 mmol/L (97-110); CREATININE 3.87 mg/dl (0.61-1.24); Estimated GFR 16 mL/min (>60); GLUCOSE 114 mg/dl (70-220); SODIUM 133 mmol/L (135-144); TOTAL PROTEIN 6.1 g/dl (6.1-8.1)
[2019-07-14 12:45] LABS: ALANINE AMINOTRANSFERASE 2041 IU/L (13-69); POTASSIUM 2.9 mmol/L (3.5-5.1)
[2019-07-14 12:55] LABS: IMMEDIATE SPIN CROSSMATCH 1 6
[2019-07-14] MEDS: FENTAnyl (DRIP) 1000 mcg/100mL 100 ML IV (13:06)
[2019-07-14] MEDS: MEROPENEM 500MG/50 ML (PMX) 50 ML IVPB (13:07)
[2019-07-15] MEDS: ACCU-CHEK XX ×7 (01:00→13:14)
[2019-07-15] MEDS: VASOPRESSIN 60 UNIT in DEXTROSE 5% 57 ML IV ×2 (03:00→05:36)
[2019-07-15 04:53] LABS: ADD MAN DIFF? NO
[2019-07-15 05:03] LABS: ABNORMAL IP MESSAGE 1; BASOPHILS % 0.1 % (0.0-2.0); EOSINOPHILS % 0.1 % (0.0-7.0); HEMATOCRIT 21.6 % (42.0-52.0); HEMOGLOBIN 7.2 g/dl (14.0-18.0); LYMPHOCYTES # 0.4 10^3/ul (0.8-2.9); LYMPHOCYTES % 2.4 % (15.0-51.0); MEAN CORPUSCULAR HEMOGLOBIN 30.8 pg (29.0-33.0); MEAN CORPUSCULAR HGB CONC 33.3 g/dl (32.0-37.0); MEAN CORPUSCULAR VOLUME 92.3 fl (82.0-101.0); MEAN PLATELET VOLUME 12.1 fl (7.4-10.4); MONOCYTE # 0.6 10^3/ul (0.3-0.9); MONOCYTES % 3.4 % (0.0-11.0); NEUTROPHIL # 16.8 10^3/ul (1.6-7.5); NEUTROPHILS % 93.3 % (39.0-77.0); NUCLEATED RED BLOOD CELLS # 0.1 10^3/ul (0.0-0.0); NUCLEATED RED BLOOD CELLS% 0.5 /100WBC (0.0-0.0); PLATELET COUNT 99 10^3/UL (140-415); POSITIVE DIFF @See below; RED BLOOD COUNT 2.34 10^6/ul (4.70-6.10); RED CELL DISTRIBUTION WIDTH 15.8 % (11.5-14.5)
[2019-07-15] MEDS: EPINEPHrine 4 MG in DEXTROSE 5% 246 ML IV ×2 (05:15→12:18)
[2019-07-15 05:16] LABS: AADO2 Arterial 618.7 mmHg (7.0-24.0); Allen Test ACCEPTAB; Arterial Base Excess -3.4 mmol/L (-3.0-3); Arterial Blood Gas Oxygen Sat 83.3 mmHG (95.0-98.0); Arterial COHb 0.5 % (0.0-3.0); Arterial Fraction of Oxyhgb 82.5 % (93.0-99.0); Arterial HCO3 22.4 mmol/L (22.0-26.0); Arterial MetHb 0.5 % (0.0-1.5); Arterial pCO2 43.7 mmhg (35-45); MODE VENT - AC; Site Right Radial
[2019-07-15 05:21] LABS: INR 5.21; PARTIAL THROMBOPLASTIN TIME 33.6 Sec (23.0-35.0); PROTIME 47.8 Sec (11.9-14.9); PT RATIO 3.7
[2019-07-15 05:22] LABS: LACTIC ACID 1.7 mmol/L (0.5-2.0)
[2019-07-15 05:24] LABS: MAGNESIUM 2.5 mg/dl (1.7-2.5)
[2019-07-15 05:24] LABS: PHOSPHORUS 4.7 mg/dl (2.5-4.9)
[2019-07-15 05:25] LABS: ANION GAP 18 (5-13); BLOOD UREA NITROGEN 88 mg/dl (7-20); CALCIUM 6.8 mg/dl (8.4-10.2); CARBON DIOXIDE 27 mmol/L (21-31); CHLORIDE 87 mmol/L (97-110); CREATININE 4.71 mg/dl (0.61-1.24); Estimated GFR 13 mL/min (>60); GLUCOSE 115 mg/dl (70-220); POTASSIUM 3.5 mmol/L (3.5-5.1); SODIUM 132 mmol/L (135-144)
[2019-07-15] MEDS: PANTOPRAZOLE 40 MG INJ IV (05:25)
[2019-07-15] MEDS: HYDROCORTISONE 100 MG INJ IV ×2 (05:25→12:26)
[2019-07-15] MEDS: LIDOCAINE 5% PATCH TD (09:00)
[2019-07-15] MEDS ORDERED: FLUCONAZOLE 400 MG/NS (PMX) 200 ML IVPB (11:00)
[2019-07-15] MEDS: FLUCONAZOLE 200 MG (PMX) 100 ML IVPB (12:26)
[2019-07-15 12:27] LABS: AADO2 Arterial 550.8 mmHg (7.0-24.0); Allen Test ACCEPTAB; Arterial Base Excess -4.3 mmol/L (-3.0-3); Arterial COHb 0.3 % (0.0-3.0); Arterial Fraction of Oxyhgb 97.2 % (93.0-99.0); Arterial HCO3 21.2 mmol/L (22.0-26.0); Arterial MetHb 0.5 % (0.0-1.5); MODE VENT - AC; Site Right Radial
[2019-07-15] MEDS: MEROPENEM 500MG/50 ML (PMX) 50 ML IVPB (12:59)
[2019-07-15] MEDS: INSULIN HUMAN REGULAR 100 UNIT in SOD CHLORIDE 0.9% 99 ML IV (13:35)
[2019-07-15] MEDS: FENTAnyl (DRIP) 1000 mcg/100mL 100 ML IV (13:36)
[2019-07-15] MEDS: morphine 4 MG/ML VIAL IV (15:01)
[2019-07-15] MEDS: LORAZEPAM 2 MG INJ IV (15:01)
== END 2019-07-15 16:32 | disposition expired | DRG 291 ==
LOC: E/R 12:39 → ICU 15:24
PROC: 0BH17EZ Insertion of Endotracheal Airway into Trachea, Via Natural or Artificial Opening (ICD-10-PCS; 2019-07-12)
PROC: 5A1945Z Respiratory Ventilation, 24-96 Consecutive Hours (ICD-10-PCS; 2019-07-12)
PROC: 02HV33Z Insertion of Infusion Device into Superior Vena Cava, Percutaneous Approach (ICD-10-PCS; 2019-07-12)
PROC: B5181ZA Fluoroscopy of Superior Vena Cava using Low Osmolar Contrast, Guidance (ICD-10-PCS; 2019-07-12)
PROC: 5A1D70Z Performance of Urinary Filtration, Intermittent, Less than 6 Hours Per Day (ICD-10-PCS; 2019-07-12)
PROC: 30233K1 Transfusion of Nonautologous Frozen Plasma into Peripheral Vein, Percutaneous Approach (ICD-10-PCS; principal; 2019-07-13)
PROC: 30233N1 Transfusion of Nonautologous Red Blood Cells into Peripheral Vein, Percutaneous Approach (ICD-10-PCS; 2019-07-13)
DX: I11.0 Hypertensive heart disease with heart failure (principal); J96.01 Acute respiratory failure with hypoxia; J18.9 Pneumonia, unspecified organism; J80 Acute respiratory distress syndrome; K72.00 Acute and subacute hepatic failure without coma; D65 Disseminated intravascular coagulation [defibrination syndrome]; J69.0 Pneumonitis due to inhalation of food and vomit; R65.21 Severe sepsis with septic shock; A41.9 Sepsis, unspecified organism; N17.9 Acute kidney failure, unspecified; I50.23 Acute on chronic systolic (congestive) heart failure; Z95.810 Presence of automatic (implantable) cardiac defibrillator; Z95.5 Presence of coronary angioplasty implant and graft; Z87.891 Personal history of nicotine dependence; R57.0 Cardiogenic shock; E87.6 Hypokalemia; I48.91 Unspecified atrial fibrillation; I25.5 Ischemic cardiomyopathy; R07.9 Chest pain, unspecified; E83.42 Hypomagnesemia; Z79.02 Long term (current) use of antithrombotics/antiplatelets; Z72.0 Tobacco use; I27.20 Pulmonary hypertension, unspecified; R34 Anuria and oliguria; D64.9 Anemia, unspecified
CPT/HCPCS: 36415; 36430; 36600; 71045; 76700; 76937; 80048; 80053; 80076; 80202; 81001; 82550; 82553; 82803; 82962; 83605; 83735; 83880; 84100; 84484; 85025; 85049; 85362; 85378; 85384; 85610; 85670; 85730; 86706; 86850; 86900; 86901; 86920; 87040-91; 87070; 87081; 87086; 87340; 90935; 93005; 93306; 93970; 94002; 94003; 94640; 94660; 94664; 94770; 96365; 96375; 99285-25